=== PATIENT | female | born 1960 | race Hispanic/Latino ===

== ENCOUNTER 2018-11-10 15:27 | Emergency (ER) | payer SELFPAY ==
--- NOTE | 2018-11-10 15:30 | NUR ---
EKG IN TRIAGE; SOLE ROUGHER SAW PT IN TRIAGE
[2018-11-10] MEDS ORDERED: SODIUM CHLORIDE 0.9% 1000ML 1,000 ML IV STA (15:44)
[2018-11-10] MEDS ORDERED: MORPHINE SULFATE INJ 4 MG/ML INJ 1ML IV NR (15:44)
[2018-11-10] MEDS ORDERED: ONDANSETRON HCL INJ 2MG/ML 2ML 2 MG/ML VIAL IV STA (15:44)
[2018-11-10 16:14] LABS: BASOPHILS # (AUTO) 0.1 (0.0-0.1); BASOPHILS % 0.5 % (0.0-1.0); EOSINOPHILS # (AUTO) 0.2 (0.0-0.4); EOSINOPHILS % 1.7 % (0.0-6.0); HEMATOCRIT 40.5 % (34.2-44.1); HEMOGLOBIN 13.5 g/dL (12.0-16.0); LYMPHOCYTES % 30.9 % (18.0-39.1); MEAN CORPUSCULAR HEMOGLOBIN 29.8 pg (28-32); MEAN CORPUSCULAR HGB CONC 33.3 g/dL (31-35); MEAN CORPUSCULAR VOLUME 89.4 fL (81-99); MONOCYTES # (AUTO) 0.5 (0.2-0.8); NEUTROPHILS % 61.6 % (38.7-80.0); PLATELET COUNT 200 x10e3/uL (140-360); RED BLOOD COUNT 4.53 x10e6/uL (3.6-5.1); RED CELL DISTRIBUTION WIDTH 12.5 % (11.7-14.4)
[2018-11-10 16:23] LABS: INR 0.94; PROTHROMBIN TIME 13.4 seconds (11.9-14.5)
[2018-11-10 16:24] LABS: PARTIAL THROMBOPLASTIN TIME 33.6 seconds (23.8-35.5)
[2018-11-10 16:31] LABS: ALANINE AMINOTRANSFERASE 27 IU/L (0-55); ALBUMIN 3.9 g/dL (3.5-5.0); ALBUMIN/GLOBULIN RATIO 1.4 (0.8-2.0); ALKALINE PHOSPHATASE 69 IU/L (40-150); AMYLASE 41 U/L (25-125); ANION GAP 16.7 mmol/L (8-16); BLOOD UREA NITROGEN 10 mg/dL (7-26); BUN/CREATININE RATIO 14 (6-25); CALCIUM 9.4 mg/dL (8.4-10.2); CARBON DIOXIDE 20 mmol/L (22-29); CHLORIDE 105 mmol/L (98-107); CREATINE KINASE 94 IU/L (29-168); CREATININE, SERUM 0.73 mg/dL (0.57-1.11); EST GLOMERULAR FILTRATION RATE > 60 ML/MIN (60-); GLUCOSE 186 mg/dL (74-118); LIPASE 47 U/L (8-78); POTASSIUM 3.7 mmol/L (3.5-5.1); SODIUM 138 mmol/L (136-145)
[2018-11-10 17:18] LABS: BILIRUBIN,URINE NEGATIVE (NEGATIVE); CLARITY,URINE CLEAR (CLEAR); COLOR,URINE YELLOW (YELLOW); KETONES,URINE NEGATIVE (NEGATIVE); LEUKOCYTE ESTERASE ,URINE NEGATIVE (NEGATIVE); NITRITE,URINE NEGATIVE (NEGATIVE); PROTEIN,URINE DIPSTICK NEGATIVE (NEGATIVE); URINE UROBILINOGEN 0.2 mg/dL (0.2 - 1)
[2018-11-10 17:32] LABS: EPITHELIAL CELLS,URINE RARE /LPF; RBC,URINE 0-5 /HPF (0-5)
[2018-11-10] MEDS ORDERED: ONDANSETRON HCL INJ 2MG/ML 2ML 2 MG/ML VIAL IV NR (18:14)
[2018-11-10] MEDS ORDERED: MORPHINE SULFATE INJ 4 MG/ML INJ 1ML IV PRN (18:15)
[2018-11-10] MEDS ORDERED: ONDANSETRON HCL INJ 2MG/ML 2ML 2 MG/ML VIAL ONE (18:21)
--- NOTE | 2018-11-10 18:47 | Diagnostic Imaging Report ---
EXAM: XR CHEST 2 VIEWS DATE: 11/10/2018 3:44 PM INDICATION: Pain COMPARISON: None FINDINGS: Lines and Tubes: None Heart and Mediastinum: No acute cardiomediastinal findings. Lungs and Pleura: No significant pleural effusion, pneumothorax, or focal consolidation. Bones and Soft Tissues: No acute findings. IMPRESSION: 1. No acute cardiopulmonary findings. Signed by: Dr. Angelito Russo MD on 11/10/2018 6:44 PM
--- NOTE | 2018-11-10 18:49 | Diagnostic Imaging Report ---
EXAM: CT Abdomen and Pelvis WITH contrast INDICATION: Pain COMPARISON: None. TECHNIQUE: Abdomen and Pelvis was scanned utilizing a multidetector helical scanner after administration of IV contrast. Coronal and sagittal reformations were obtained. IV CONTRAST: 100 mL Isovue-370 COMPLICATIONS: None RADIATION DOSE: Total DLP:803 mGy*cm Estimated effective dose: (DLP x 0.015 x size factor) mSv CTDIvol has been reviewed. It is below the limits set by the Radiation Protocol Committee (RPC). Appropriate CT dose reduction techniques were utilized. FINDINGS: Abdomen: Lung Bases: Mild emphysematous change. Solid Organs: Hepatic steatosis. Liver, adrenals, kidneys, spleen, and pancreas otherwise unremarkable. Upper GI Tract: Decompressed stomach limits adequate evaluation. No small bowel obstructive changes. Vascularity: Vascular calcifications with no aneurysm. Lymph Nodes: No suspicious adenopathy. Other: None. Pelvis: Bladder: Unremarkable. Other: Uterus absent. Colon: No acute colonic findings. Bones: Moderate L5-S1 degenerative disc changes. IMPRESSION: 1. No definite acute findings. See above for full details. Signed by: Dr. Angelito Russo MD on 11/10/2018 6:46 PM
--- NOTE | 2018-11-10 19:13 | NUR ---
Walking rounds with MYLES Santo.
[2018-11-10] MEDS ORDERED: SODIUM CHLORIDE 0.9% 50ML 50 ML ONE (19:54)
[2018-11-10] MEDS ORDERED: IOPAMIDOL 370 MG/ML 200 ML INFUS..BTL INJ ONE (19:54)
== END 2018-11-10 19:51 | disposition home or self-care (01) ==
LOC: ER 15:27
DX: R07.89 Other chest pain (principal); R10.13 Epigastric pain
CPT/HCPCS: 36415; 71046; 74177; 80053; 81001; 82150; 82550; 82553; 83690; 84484; 85025; 85610; 85730; 93005; 99283; J2270; J2405; J7030; Q9967

== ENCOUNTER 2018-11-20 02:54 | Observation (INO) | payer SELFPAY ==
[2018-11-20] VITALS (10 sets, daily range): BP systolic 108–134; BP diastolic 56–86
[~2018-11-20] VITALS: Ht 160 cm; Wt 82.6 kg
--- OUTSIDE RECORDS SUMMARY | 2018-11-20 02:57 | XMS REPORT ---
[facility] Address Unknown Phone Unavailable Care Team Providers Care Pulp And Paper Tester Name Role Phone Dale SNOW Unavailable Unavailable Problems This patient has no known problems. Allergies, Adverse Reactions, Alerts This patient has no known allergies or adverse reactions. Medications This patient has no known medications. Results Test Description Test Time Test Comments Text Results Atomic Results Result Comments CHEST 2 VIEWS 2018-11-10 18:44:00 [place] [address] Patient Name: SIXTO SURESH MR #: [id number] : 1960 Age/Sex: 58/F Req #: [id number] Adm Physician: Ordered by: FAY LI NP Report #: [id number] Location: ER Room/Bed: Procedure: [id number] DX/CHEST 2 VIEWS Exam Date: Exam Time: REPORT STATUS: Signed EXAM: XR CHEST 2 VIEWS DATE: 11/10/2018 3:44 PM INDICATION: Pain COMPARISON: None FINDINGS: Lines and Tubes: None Heart and Mediastinum: No acute cardiomediastinal findings. Lungs and Pleura: No significant pleural effusion, pneumothorax, or focal consolidation. Bones and Soft Tissues: No acute findings. IMPRESSION: 1. No acute cardiopulmonary findings. Signed by: Dr. Angelito Russo MD on 11/10/2018 6:44 PM Dictated By: AGNELITO RUSSO MD 43 Transcribed By: GUERDA on 11/10/181843 COPY TO: FAY LI NP CT ABDOMEN/PELVIS W 2018-11-10 18:44:00 [place] [address] Patient Name: SIXTO SURESH MR #: [id number] : 1960 Age/Sex: 58/F Req #: [id number] Adm Physician: Ordered by: FAY LI NP Report #: [id number] Location: ER Room/Bed: Procedure: [id number] CT/CT ABDOMEN/PELVIS W Exam Date: Exam Time: REPORT STATUS: Signed EXAM: CT Abdomen and Pelvis WITH contrast INDICATION: Pain COMPARISON: None. TECHNIQUE: Abdomen and Pelvis was scanned utilizing a multidetector helical scanner after administration of IV contrast. Coronal and sagittal reformations were obtained. IV CONTRAST: 100 mL Isovue- 370 COMPLICATIONS: None RADIATION DOSE: Total DLP:803 mGy*cm Estimated effective dose: (DLP x 0.015 x size factor) mSv CTDIvol has been reviewed. It is below the limits set by the Radiation Protocol Committee (RPC). Appropriate CT dose reduction techniques were utilized. FINDINGS: Abdomen: Lung Bases: Mild emphysematous change. Solid Organs: Hepatic steatosis. Liver, adrenals, kidneys, spleen, and pancreas otherwise unremarkable. Upper GI Tract: Decompressed stomach limits adequate evaluation. No small bowel obstructive changes. Vascularity: Vascular calcifications with no aneurysm. Lymph Nodes: No suspicious adenopathy. Other: None. Pelvis: Bladder: Unremarkable. Other: Uterus absent. Colon: No acute colonic findings. Bones: Moderate L5-S1 degenerative disc changes. IMPRESSION: 1. No definite acute findings. See above for full details. Signed by: Dr. Angelito Russo MD on 11/10/2018 6:46 PM Dictated By: ANGELITO RUSSO MD 45 Transcribed By: GUERDA on 11/10/181845 COPY TO: FAY LI NP
[2018-11-20] MEDS ORDERED: ENALAPRILAT IV INJ 1.25 MG/ML VIAL IV STA (03:06)
[2018-11-20] MEDS ORDERED: SODIUM CHLORIDE 0.9% 1000ML 1,000 ML IV STA (03:06)
[2018-11-20] MEDS ORDERED: NITROGLYCERIN 2% OINT 1 GM PKT TOP ONE (03:15)
[2018-11-20] MEDS ORDERED: ACETAMINOPHEN 325 MG TAB PO ONE (03:15)
[2018-11-20] MEDS ORDERED: ONDANSETRON HCL INJ 2MG/ML 2ML 2 MG/ML VIAL IV PRN ×4 (03:15→17:15)
[2018-11-20] MEDS ORDERED: FAMOTIDINE 20 MG/2 ML VIAL IV ONE (03:15)
[2018-11-20] MEDS ORDERED: CLONIDINE HCL 0.1 MG TAB PO ONE (03:15)
[2018-11-20 03:30] LABS: BASOPHILS # (AUTO) 0.1 (0.0-0.1); BASOPHILS % 0.6 % (0.0-1.0); EOSINOPHILS # (AUTO) 0.3 (0.0-0.4); EOSINOPHILS % 2.7 % (0.0-6.0); HEMATOCRIT 38.4 % (34.2-44.1); LYMPHOCYTES # (AUTO) 3.9 (1.0-3.2); LYMPHOCYTES % 36.1 % (18.0-39.1); MEAN CORPUSCULAR HEMOGLOBIN 29.6 pg (28-32); MEAN CORPUSCULAR HGB CONC 33.9 g/dL (31-35); MEAN CORPUSCULAR VOLUME 87.5 fL (81-99); MONOCYTES # (AUTO) 0.7 (0.2-0.8); MONOCYTES % 6.5 % (4.4-11.3); NEUTROPHILS # (AUTO) 5.8 (2.1-6.9); NEUTROPHILS % 53.5 % (38.7-80.0); PLATELET COUNT 210 x10e3/uL (140-360); RED BLOOD COUNT 4.39 x10e6/uL (3.6-5.1); RED CELL DISTRIBUTION WIDTH 12.6 % (11.7-14.4)
[2018-11-20] MEDS ORDERED: ASPIRIN 81 MG CHEW TAB PO ONE (03:30)
[2018-11-20 03:36] LABS: BILIRUBIN,URINE NEGATIVE (NEGATIVE); CLARITY,URINE CLEAR (CLEAR); COLOR,URINE YELLOW (YELLOW); KETONES,URINE NEGATIVE (NEGATIVE); LEUKOCYTE ESTERASE ,URINE NEGATIVE (NEGATIVE); NITRITE,URINE NEGATIVE (NEGATIVE); PROTEIN,URINE DIPSTICK NEGATIVE (NEGATIVE); URINE UROBILINOGEN 0.2 mg/dL (0.2 - 1)
[2018-11-20 03:42] LABS: ALANINE AMINOTRANSFERASE 23 IU/L (0-55); ALBUMIN 3.5 g/dL (3.5-5.0); ALBUMIN/GLOBULIN RATIO 1.1 (0.8-2.0); ALKALINE PHOSPHATASE 67 IU/L (40-150); ANION GAP 16.1 mmol/L (8-16); BLOOD UREA NITROGEN 11 mg/dL (7-26); BUN/CREATININE RATIO 15 (6-25); CALCIUM 9.4 mg/dL (8.4-10.2); CARBON DIOXIDE 20 mmol/L (22-29); CHLORIDE 103 mmol/L (98-107); CREATINE KINASE 53 IU/L (29-168); CREATININE, SERUM 0.72 mg/dL (0.57-1.11); EST GLOMERULAR FILTRATION RATE > 60 ML/MIN (60-); GLUCOSE 200 mg/dL (74-118); POTASSIUM 4.1 mmol/L (3.5-5.1); SODIUM 135 mmol/L (136-145)
[2018-11-20 04:03] LABS: BACTERIA,URINE FEW /HPF; EPITHELIAL CELLS,URINE RARE /LPF; WBC,URINE (MAN) 0-5 /HPF (0-5)
--- NOTE | 2018-11-20 04:03 | Diagnostic Imaging Report ---
EXAM: XR CHEST 1 VIEW DATE: 11/20/2018 3:06 AM INDICATION: Chest pain COMPARISON: 11/10/2018, no report available FINDINGS: Lines and Tubes: None Heart and Mediastinum: Heart upper limits of normal. Lungs and Pleura: Elevation right hemidiaphragm. Minimal basilar opacities. Bones and Soft Tissues: No acute findings. IMPRESSION: 1. Probable basilar atelectasis. Signed by: Dr. Angelito Russo MD on 11/20/2018 4:00 AM
[2018-11-20] MEDS ORDERED: LACTULOSE SYRUP 20 GM/30 ML UDC PO PRN (04:30)
[2018-11-20] MEDS ORDERED: ENALAPRILAT IV INJ 1.25 MG/ML VIAL IV PRN (04:30)
[2018-11-20] MEDS ORDERED: DEXTROSE 50% SYRINGE 50 ML IV PRN (04:30)
[2018-11-20] MEDS ORDERED: ZOLPIDEM TARTRATE 5 MG TAB PO PRN (04:30)
[2018-11-20] MEDS ORDERED: SODIUM CHLORIDE FLUSH 10 ML SYR INJ PRN (04:30)
[2018-11-20] MEDS ORDERED: ACETAMINOPHEN 325 MG TAB PO PRN (04:30)
[2018-11-20] MEDS ORDERED: DIPHENHYDRAMINE HCL INJ 50 MG/ML VIAL IV PRN (04:30)
[2018-11-20] MEDS ORDERED: HYDROCODONE/APAP 7.5MG-325MG 1 EA TAB PO PRN (04:30)
[2018-11-20] MEDS ORDERED: KETOROLAC TROMETHAMINE 30 MG/ML VIAL ONE (05:49)
[2018-11-20] MEDS: NITROGLYCERIN 2% OINT 1 GM PKT TOP SCH ×2 (06:16→12:26)
[2018-11-20] MEDS: METOPROLOL TARTRATE 25 MG TAB PO SCH ×2 (06:18→18:26)
[2018-11-20] MEDS ORDERED: KETOROLAC TROMETHAMINE 30 MG/ML VIAL IV PRN (06:30)
--- NOTE | 2018-11-20 06:55 | NUR ---
RECEIVED REPORT FROM OFF GOING NURSE. PATIENT IN ROOM IN BED. FAMILY AT BEDSIDE. PATIENT CONNECTED TO BEDSIDE MONITOR. PATIENT NPO PENDING POSSIBLE HEART CATH. NO S/S OF ACUTE DISTRESS. PATIENT AAO X 4 AND IS COMMUNICATING WITH FAMILY AND STAFF IN [place]. REPORTS STILL HAS DISCOMFORT IN CHEST AND IN FEET. PATIENT IS AWARE OF PROBABLE PROCEDURE AND WAS MADE AWARE THAT AFTER MD SEES HER THE CONSENT WILL BE FILLED OUT FOR REVIEW THEN SIGNATURE. HOME MEDS REVIEWED AND UPDATED IN CHART. BED DOWN, CALL LIGHT IN REACH, WILL CONTINUE TO MONITOR.
[2018-11-20] MEDS ORDERED: GLIPIZIDE5 MG PEG (07:28)
[2018-11-20] MEDS ORDERED: PRAVASTATIN SOD40 MG PO (07:28)
[2018-11-20] MEDS ORDERED: LOSARTAN POTASS25 MG PO (07:28)
[2018-11-20] MEDS: INSULIN REGULAR, HUMAN 100 UNIT/1 ML 3ML VIAL SQ SCH ×4 (07:51→21:00)
[2018-11-20] MEDS: FAMOTIDINE 20 MG TAB PO SCH ×2 (08:44→21:34)
[2018-11-20] MEDS: ASPIRIN 325 MG TAB EC PO SCH (08:44)
[2018-11-20] MEDS: LISINOPRIL 10 MG TAB PO SCH (08:44)
--- NOTE | 2018-11-20 08:45 | NUR ---
PAGED DR. JAYME CARLOS, PATIENT C/O PAIN. HAS PO PRN PAIN MEDS BUT IS NPO.
[2018-11-20] MEDS ORDERED: MORPHINE SULFATE INJ 4 MG/ML INJ 1ML IV PRN (09:15)
[2018-11-20 10:54] LABS: CHOL/HDL RATIO 5.4 (3.0-3.6)
[2018-11-20 13:06] LABS: CREATINE KINASE MB 3.3 ng/mL (0-5.0)
[2018-11-20] MEDS ORDERED: CLOPIDOGREL BISULFATE 75 MG TAB PO NR (14:00)
--- NOTE | 2018-11-20 14:25 | NUR ---
CONSENT FOR HEART CATH SIGNED, INTERNAL CONSULTANT STAFF IN ED TO COAL PULVERIZER OPERATOR PATIENT AND TAKE TO INTERNAL CONSULTANT.
[2018-11-20] MEDS: SODIUM CHLORIDE 0.9% 1000ML 1,000 ML IV SCH ×2 (14:29→21:35)
[2018-11-20] MEDS ORDERED: MIDAZOLAM HCL 2 MG/2 ML VIAL ONE (14:58)
[2018-11-20] MEDS ORDERED: FENTANYL CITRATE/PF 100MCG/2 ML INJ ONE (14:58)
[2018-11-20] MEDS ORDERED: LIDOCAINE HCL 1% LOCAL INJ 20 ML VIAL ONE (14:59)
[2018-11-20] MEDS ORDERED: IOPAMIDOL 370 MG/ML 200 ML INFUS..BTL INJ ONE ×2 (14:59→15:25)
[2018-11-20] MEDS ORDERED: HEPARIN SOD/SOD CHLORIDE 2,000 ML ONE (14:59)
[2018-11-20] MEDS ORDERED: BIVALRIUDIN 250 MG/VIAL VIAL IV ONE ×2 (15:18→15:21)
[2018-11-20] MEDS ORDERED: SODIUM CHLORIDE 0.9% 100 ML 0 ML ONE (15:18)
[2018-11-20] MEDS ORDERED: SODIUM CHLORIDE 0.9% 50ML 50 ML ONE (15:21)
--- NOTE | 2018-11-20 15:50 | NUR ---
Rec'd to wastewater analyst lab analyst recovery. VSS, denies pain, abdelrahman. pedal pulses 1+, sheath to right groin no complications. Family @ BS.
--- NOTE | 2018-11-20 16:28 | Consultation ---
DATE OF CONSULTATION: November 20, 2018 CARDIOLOGY CONSULTATION REASON FOR CONSULTATION: Chest pain. HISTORY OF PRESENT ILLNESS: This is a 58-year-old female with history of hypertension, hyperlipidemia, diabetes, smoker. Patient presents to [facility] ER with complaints of chest pains and shortness of breath, was noted to be hypertensive. However, complaining of chest pain. Cardiology was consulted. Patient seen in the ER with family at bedside. Reports has been having off-and-on chest pain for the past month or so. However, the past week she is beginning to have progressively more shortness of breath, reports chest pain is becoming more severe and more frequent in nature, reports chest pain has retrosternal pressure and radiates to the left arm with shortness of breath, dizziness, lightheadedness and with some nausea. Also reports has been having intermittent dizziness spells with episodes. Currently during interview patient is having chest pain. EKG noted with inverted T waves in the inferior lateral leads. Initial troponin negative at 0.04, next one has increased to 0.2. Patient continues to have chest pain and shortness of breath. Patient was loaded with Plavix. Options were presented to patient, and patient is requesting that we move forward with a left heart catheterization. Risks and benefits discussed with patient and family members at bedside. PAST MEDICAL HISTORY 1. Hypertension. 2. Hyperlipidemia. 3. Diabetes. 4. Smoker. PAST SURGICAL HISTORY 1. Hysterectomy. 2. Appendectomy. FAMILY HISTORY: Mother at 84, apparently with history of diabetes and hyperlipidemia. Father over 40 years ago, unknown issues. SOCIAL HISTORY: She is a . She is housekeeping. She smokes about a half a pack per day, denies any alcohol use. HOME MEDICATIONS: Include 1. Pravastatin 40 mg once a day. 2. Losartan 25 mg once a day. 3. Glimepiride 2.5 mg twice a day. ALLERGIES: NO KNOWN ALLERGIES. REVIEW OF SYSTEMS GENERAL: Denies any weight changes. Positive for fatigue, weakness. Denies any fevers or chills. SKIN-THAKUR: Denies any rashes, sores. HEENT: Denies any vision changes, double vision, blurred vision, any epistaxis. Positive for sore throat. CARDIAC: Positive for chest pain, shortness of breath, intermittent lower extremity edema. RESPIRATORY: Positive for shortness of breath. Positive for cough, nonproductive. Denies any hemoptysis. GI: Good appetite. Positive for nausea, no vomiting. Denies any diarrhea, constipation, melena, hematochezia. URINARY: Denies any frequency, urgency, dysuria, hematuria. VASCULAR: Positive for the lower extremity edema. Denies any claudication. MUSCULOSKELETAL: Denies any muscle weakness. Positive for joint stiffness and aches. NEUROLOGIC: Denies any numbness, tingling, tremors, weakness, paralysis, blackouts, seizures. HEMATOLOGY: Denies any anemia, easy bruising. ENDOCRINE: Denies any heat or cold intolerance, any polyuria, polydipsia, polyphagia. PHYSICAL EXAMINATION VITAL SIGNS: Height 63 inches, weight 182 pounds, BMI 32. Vital signs currently temperature 98.4, pulse 62, respiratory rate 18, blood pressure 107/64, pulse ox 97% on 2 liters nasal cannula. GENERAL: Appears a reliable informant, in mild distress currently, also emotional. SKIN-THAKUR: No rashes or bruises noted. HEENT: Normocephalic. Pupils equal and reactive. Extraocular motor intact. Trachea midline. A right carotid bruit. Oral mucosa pink. No JVD noted. HEART: Regular rate and rhythm. A soft systolic murmur heard in the right upper sternal border. RESPIRATORY: Bilateral breath sounds diminished throughout. Crackles at the bases. ABDOMEN: Soft, nontender, nondistended. No organomegaly noted. MUSCULOSKELETAL: Good muscle strength throughout. VASCULAR: +2 bilateral radial pulses, +1 DP/PT pulses bilaterally. LABS: Sodium 135, potassium 4.1, chloride 103, bicarb 20, BUN 11, creatinine 0.7, glucose 200. Initial troponin 0.04, next 0.2. Triglyceride 392, total cholesterol 157, LDL 50, HDL 29. ELECTROCARDIOGRAM: Normal sinus rhythm with inverted T waves in the inferior lateral leads. ASSESSMENT 1. Chest pain with unstable angina characteristics. 2. Hypertension. 3. Hyperlipidemia. 4. Diabetes. 5. Smoker. 6. Upper respiratory illness. PLAN-THAKUR 1. The patient presents with chest pain, shortness of breath progressive in nature, with increasing frequency and severity. Patient currently complaining of chest pain during the interview process. Options were given. Patient wants to have a definitive exam with a left heart catheterization. Risks and benefits and alternatives were discussed at length with patient and family member at bedside. Patient wishes for a heart catheterization. Will go ahead and load patient with Plavix, n.p.o., also will start IV fluids. 2. Continue the patient on aspirin, statin and beta tracy therapy. 3. Echo has been done and will be reviewed by cardiology attending. 4. Also a right carotid bruit noted. A carotid Doppler has been ordered to evaluate anatomy. 5. Further recommendations after heart cath has been done. Thank you very much for this consult. We will adjust cardiac therapy as clinical course dictates. Dictated by: Cayetano Cornell NP Seen and examined ACS and rising Troponin ( NSTEMI ) ===> Trolley Car Mechanic Job#: [id number] EV MTDAlayna
[2018-11-20] MEDS ORDERED: ATROPINE SULFATE 0.1 MG/ML 10ML SYR ONE (16:34)
--- NOTE | 2018-11-20 16:39 | NUR ---
Right femoral artery sheath removed and vascade closure device deployed by Osmel Corona. Gauze and tegaderm placed to site C/D/I, tol. izquierdo.
[2018-11-20] MEDS: GLIPIZIDE 5 MG TAB PEG SCH (17:00)
--- NOTE | 2018-11-20 17:00 | Operative Report ---
DATE OF PROCEDURE: November 20, 2018 TITLE OF PROCEDURE: 1. Percutaneous coronary intervention and stenting of the right coronary artery. 2. Left cardiac catheterization. INDICATIONS: Shc-YM-yahbegxlq myocardial infarction in diabetic, hypertensive patient. TECHNICAL DETAILS: After the usual sterile preparation and draping procedure, intravenous Versed given for sedation, local Xylocaine for anesthesia. A 4-Grenadian sheath established in place. Carmen left 4 and 3DRC catheters to engage the coronary. Pigtail for hemodynamic measurement and left ventriculogram. A decision was made to proceed with a PCI. For that reason, the existing 4-Grenadian sheath exchanged to a 6-Grenadian sheath. Guiding catheter with 3DRC showed damping of the pressure. For that reason, the guiding changed to a 3DRC with side hole. Angiomax given in the usual dosage. Patient already received Plavix in the emergency room. The lesion was crossed and stented using 2.25 x 18 stent up to 22 atmospheres. Final diameter of 2.55 mm. The lesion prior to intervention at 95% with clot, following intervention at 0%. Patient transferred to recovery area in stable condition to have her sheath to be removed later using Vascade. RESULTS: A. Coronary angiogram. 1. Left main free of disease. 2. LAD several plaques at 30%. 3. Circumflex coronary artery few plaques at 30%. 4. Right coronary artery 95% with clot distally. B. Hemodynamic measurements: Aorta pressure 120/70. LV pressure 120/18. C. Left ventriculogram in the right anterior oblique view showed normal-sized ventricle with an ejection fraction of 60%. PCI procedure: Lesion distal RCA 95% with clot, following intervention at 0%. The stent was 2.25 x 18 up to 22 atmospheres. Final diameter of 2.55 mm. Of note, patient does have very high bifurcation of her common femoral artery, and her arteries are very small. For that reason, we did not deploy Angio-Seal or Perclose. IMPRESSION: Non-ST myocardial infarction with critical right coronary artery disease with successful percutaneous coronary intervention and stenting. COMPLICATION: None. BLOOD LOSS: Minimum. Job#: [id number] EV
--- NOTE | 2018-11-20 17:14 | History and Physical ---
A 58-year-old female with a past medical history positive for hypertension and diabetes came here with chest pain and uncontrolled hypertension. Patient was found to have elevated troponins ruling in for a rgw-ZH-pcaubwz elevation myocardial infarction. Patient was taken to the cardiac carpenter/labor by Dr. Rangel. REVIEW OF SYSTEMS GENERAL: The patient is still a little bit lethargic after the cardiac cath. She complains of chest pain, but none right now. RESPIRATORY: No shortness of breath. No cough. GASTROINTESTINAL: No nausea. No vomiting. No diarrhea. PHYSICAL EXAMINATION VITALS: Blood pressure now is 99/59, temperature 98.4, heart rate is a 66 per minute, respiratory rate 18 per minute, oxygen saturation 97%. HEART: Shows regular rhythm. Normal S1 and S2 sounds. LUNGS: Clear bilaterally. ABDOMEN: Soft. The chest x-ray showed some probable basilar atelectasis. On the lab work, we have a BMP with a sodium of 135, potassium 4.1, chloride 103, CO2 20, BUN 11, creatinine 0.72, glucose 200. Calcium 9.4. Total bilirubin 0.28, AST 16, ALT 23, alkaline phosphatase 67. Creatinine kinase 63. CK-MB 1.4. Troponin initially was 0.4 and then it went to 0.42 and then peaked at 0.201. Triglycerides were 392, total cholesterol is 157 LDL cholesterol is 50, HDL cholesterol is low at 29. FINAL IMPRESSION 1. Coronary artery disease: Status post ggo-YG-atzoofp elevation myocardial infarction. 2. Hypertensive emergency. 3. Uncontrolled diabetes mellitus, type 2. 4. Obesity. PLAN OF TREATMENT: The patient just underwent a cardiac catheterization. Final report still pending. Patient received Plavix and aspirin already. She is on Tylenol 650 mg IV q.6 h. as needed. She is on aspirin 385 mg in the morning. She is on enalapril at 1.25 mg IV q.6 h. as needed for hypertension. She is on Pepcid 20 mg p.o. twice a day. She is on [place] 7.5 per 325 mg 1 tablet every 6 hours as needed for severe pain. She is also on Toradol 15 mg IV as needed for pain, which we are going to discontinue. Continue lactulose 20 g twice a day as needed for constipation. Continue lisinopril 10 mg daily. Metoprolol 25 mg twice a day. She is on morphine 2 mg IV push every 4 hours as needed. She is on nitroglycerin patch 1 g q.6 h. Continue Zofran 4 mg IV q.4 h. as needed. Continue monitoring blood sugar a.c. and at night. Continue Zocor 40 mg daily. Continue Ambien 5 mg at night p.r.n. for sleep. She is on glipizide 2.5 mg twice a day and Losartan 25 mg daily. Job#: [id number] UT
--- NOTE | 2018-11-20 17:15 | NUR ---
Transferred to room 110 accompanied by family, report to Bebe Muniz RN.
--- NOTE | 2018-11-20 17:16 | NUR ---
Pt rec'd to 110 in stable condition; pt transferred to hospital bed with assistance, and without incident. R groin is soft to palpation without distension, dressing is c/d/i. Pedal pulses palpable. Pt instructed to lay flat for 4 hours and verbalized understanding.
[2018-11-20] MEDS: HYDROCODONE/APAP 5MG-325MG TAB PO PRN (18:25)
[2018-11-20 20:57] LABS: CREATINE KINASE MB 3.8 ng/mL (0-5.0)
--- NOTE | 2018-11-20 21:00 | NUR ---
RECEIVED REPORT FROM AM RN.WALKING ROUNDS DONE.AMBULATES. VOIDED.TOLERATING THE DIET.PEDAL PULSE NOTED.DRESSING @ R.GROIN IS DRY AND INTACT.FAMILY MEMBER AT BED SIDE.BED LOCKED AND IN LOWEST POSITION.PHONE AND CALL LIGHT WITHIN REACH.INSTRUCTED TO CALL FOR ASSISTANCE NEEDED.KEEP MONITOR THE PT.
[2018-11-20] MEDS: SIMVASTATIN 40 MG TAB PO SCH (21:34)
[2018-11-20] MEDS: ZOLPIDEM TARTRATE 5 MG TAB PO PRN (22:30)
[2018-11-21] VITALS (8 sets, daily range): BP systolic 96–121; BP diastolic 51–67
[2018-11-21] MEDS: HYDROCODONE/APAP 5MG-325MG TAB PO PRN ×3 (00:40→18:37)
[2018-11-21] MEDS: METOPROLOL TARTRATE 25 MG TAB PO SCH ×2 (04:30→17:59)
[2018-11-21 06:19] LABS: BASOPHILS # (AUTO) 0.1 (0.0-0.1); BASOPHILS % 0.5 % (0.0-1.0); EOSINOPHILS # (AUTO) 0.2 (0.0-0.4); EOSINOPHILS % 2.1 % (0.0-6.0); HEMATOCRIT 34.2 % (34.2-44.1); HEMOGLOBIN 11.3 g/dL (12.0-16.0); LYMPHOCYTES # (AUTO) 3.6 (1.0-3.2); LYMPHOCYTES % 35.1 % (18.0-39.1); MEAN CORPUSCULAR VOLUME 90.7 fL (81-99); MONOCYTES # (AUTO) 0.8 (0.2-0.8); MONOCYTES % 7.4 % (4.4-11.3); NEUTROPHILS # (AUTO) 5.6 (2.1-6.9); NEUTROPHILS % 54.6 % (38.7-80.0); PLATELET COUNT 183 x10e3/uL (140-360); RED BLOOD COUNT 3.77 x10e6/uL (3.6-5.1); RED CELL DISTRIBUTION WIDTH 12.7 % (11.7-14.4)
[2018-11-21 06:41] LABS: ALANINE AMINOTRANSFERASE 19 IU/L (0-55); ALBUMIN 2.8 g/dL (3.5-5.0); ALKALINE PHOSPHATASE 52 IU/L (40-150); ANION GAP 12.9 mmol/L (8-16); CALCIUM 8.5 mg/dL (8.4-10.2); CARBON DIOXIDE 22 mmol/L (22-29); CHLORIDE 107 mmol/L (98-107); CHOL/HDL RATIO 5.7 (3.0-3.6); CHOLESTEROL 132 MD/DL (0-199); CREATININE, SERUM 0.64 mg/dL (0.57-1.11); EST GLOMERULAR FILTRATION RATE > 60 ML/MIN (60-); GLUCOSE 98 mg/dL (74-118); HDL CHOLESTEROL 23 MG/DL (40-60); LDL CHOLESTEROL 41 MG/DL (60-130); POTASSIUM 3.9 mmol/L (3.5-5.1); SODIUM 138 mmol/L (136-145); TRIGLYCERIDES 340 MG/DL (0-149)
--- NOTE | 2018-11-21 06:50 | NUR ---
REPORT GIVEN TO THE ONCOMING RN.WALKING ROUNDS DONE.STABLE CONDITION.
[2018-11-21 07:13] LABS: BLOOD UREA NITROGEN 9 mg/dL (7-26); BUN/CREATININE RATIO 14 (6-25)
[2018-11-21] MEDS: INSULIN REGULAR, HUMAN 100 UNIT/1 ML 3ML VIAL SQ SCH ×4 (07:30→20:27)
--- NOTE | 2018-11-21 07:48 | NUR ---
CALL PLACED TO DR. DELACRUZ'S OFFICE AT THIS TIME TO REPORT SEVERE PAIN TO RIGHT ARM, NECK, AND CHEST. CALL BACK REC'D, ORDERS TO INCREASE DOSE OF PAIN MEDICATION.
[2018-11-21] MEDS: GLIPIZIDE 5 MG TAB PEG SCH ×2 (08:41→17:58)
[2018-11-21] MEDS: LISINOPRIL 10 MG TAB PO SCH (08:41)
[2018-11-21] MEDS: FAMOTIDINE 20 MG TAB PO SCH ×2 (08:41→20:44)
[2018-11-21] MEDS: ASPIRIN 325 MG TAB EC PO SCH (08:41)
--- NOTE | 2018-11-21 08:57 | NUR ---
CALL PLACED TO DR. BELLAMY TO INFORM OF CHEST PAIN 01/20 AFTER ADMINISTRATION OF 4MG MORPHINE IV. ORDERS REC'D FOR ONE TIME DOSE PLAVIX. DR. BELLAMY MADE AWARE OF 12 LEAD EKG RESULTS AND TROPONIN.
[2018-11-21] MEDS ORDERED: LOSARTAN POTASSIUM 25 MG TAB PO SCH (09:00)
[2018-11-21] MEDS ORDERED: CLOPIDOGREL BISULFATE 75 MG TAB PO SCH (09:00)
[2018-11-21] MEDS ORDERED: CLOPIDOGREL BISULFATE 75 MG TAB PO NR (09:00)
[2018-11-21] MEDS ORDERED: MORPHINE SULFATE INJ 4 MG/ML INJ 1ML IV PRN (09:15)
[2018-11-21] MEDS ORDERED: PRASUGREL 10 MG TAB PO NR (09:30)
--- NOTE | 2018-11-21 12:58 | NUR ---
ROUNDS WITH DR. BELLAMY AND DR. DELACRUZ. ORDERS RECEIVED FROM DR. BELLAMY; PLAN OF CARE DISCUSSED WITH PATIENT AND FAMILY. PER DR. BELLAMY, PATIENT WILL BE DISCHARGED TOMORROW.
[2018-11-21] MEDS: LORAZEPAM 1 MG TAB PO PRN (13:50)
[2018-11-21] MEDS: SODIUM CHLORIDE 0.9% 1000ML 1,000 ML IV SCH (14:03)
--- NOTE | 2018-11-21 19:10 | NUR ---
RECEIVED THE PT FROM MORNING RN.WALKING ROUNDS DONE.STABLE CONDITION.
[2018-11-21] MEDS: ALBUTEROL SULF 0.083% NEB SOLN 3 ML NEB NEB PRN (19:15)
--- NOTE | 2018-11-21 19:36 | Diagnostic Imaging Report ---
EXAM: XR CHEST 1 VIEW DATE: 11/21/2018 6:13 PM INDICATION: pain COMPARISON: None FINDINGS: Lines and Tubes: None Heart and Mediastinum: No acute cardiomediastinal findings. Lungs and Pleura: Minimal opacities in the lung bases statistically represent atelectasis, however, infectious process could have a similar appearance. Bones and Soft Tissues: No acute findings. IMPRESSION: 1. Minimal opacities in the lung bases statistically represent atelectasis, however, infectious process could have a similar appearance. Signed by: Dr. Angelito Russo MD on 11/21/2018 7:33 PM
[2018-11-21] MEDS: SIMVASTATIN 40 MG TAB PO SCH (20:44)
[2018-11-21] MEDS: ZOLPIDEM TARTRATE 5 MG TAB PO PRN (21:07)
--- NOTE | 2018-11-21 22:10 | NUR ---
ASSESSMENT DONE.NO RESP.DISTRESS. R.ARM AND CHEST PAIN VOICED3/10.FAMILY MEMBERS AT BED SIDE.AMBULATES VOIDED BED LOCKED AND IN LOWEST POSITION.PHONE AND CALL LIGHT WITHIN REACH.INSTRUCTED TO CALL FOR ASSISTANCE NEEDED.KEEP MONITORING THE PT.
[2018-11-22 00:05] VITALS: BP 108/58
[2018-11-22] MEDS: HYDROCODONE/APAP 5MG-325MG TAB PO PRN ×2 (00:53→07:05)
[2018-11-22] MEDS: LORAZEPAM 1 MG TAB PO PRN (01:11)
--- NOTE | 2018-11-22 03:13 | Discharge Summary ---
HISTORY OF PRESENT ILLNESS: Patient is a 58-year-old female who had a past medical history positive mainly for hypertension, diabetes, and hypercholesterolemia. The patient came to the hospital complaining of chest pain. She was found to have non-ST segment elevation MA. She has had a cardiac cath and a stent was placed in the right coronary artery. Patient is still having pain but it is more in the shoulder and neck today. Patient is most likely going to go home tomorrow if okay with Dr. Rangel, data coordinator. PHYSICAL EXAM VITAL SIGNS: Blood pressure 113/57, temperature 97.7, heart rate 71 per minute, respiratory rate 18 per minute, and oxygen saturation 98%. HEART: Regular rhythm. Normal S1 and S2 sounds. LUNGS: Clear bilaterally. ABDOMEN: Soft. EXTREMITIES: No evidence of cyanosis, edema, or trauma. She had 2+ bilateral pedal pulses. LABORATORY DATA: On the BMP, sodium 138, potassium 3.9, chloride 107, CO2 22, BUN 9, creatinine 0.64, and glucose 98. On the CBC, white blood count 10.1, hemoglobin 11.3, hematocrit 34.2, and platelet count 183,000. AST 19, ALT 19, total bilirubin 0.3, and alkaline phosphatase 52. FINAL IMPRESSION 1. Coronary artery disease, status post non-ST segment elevation myocardial infarction. 2. Hypertension. 3. Diabetes. 4. Obesity. 5. Hypercholesterolemia. PLAN OF TREATMENT: She is going to be discharged on aspirin 325 mg daily, Pepcid 20 mg twice a day, and continue metoprolol 25 mg twice a day. She is going to be on lisinopril 10 mg daily and glipizide 2.5 mg twice a day. We are going to send her on Lipitor 40 mg daily and she is going to continue Effient daily for a week. FOLLOWUP: She is going to follow up with Dr. Rangel in a week and Dr. Bacilio Merino, her primary care physician. DIET: Diabetic and low-cholesterol diet and low-salt diet. ELMIRA DELACRUZ MD Job#: [id number] MARTHA
[2018-11-22] MEDS: SODIUM CHLORIDE 0.9% 1000ML 1,000 ML IV SCH (04:04)
[2018-11-22] MEDS: METOPROLOL TARTRATE 25 MG TAB PO SCH (05:30)
[2018-11-22 06:10] VITALS: BP 118/58
--- NOTE | 2018-11-22 06:50 | NUR ---
REPORT GIVEN TO THE ONCOMING RN.WALKING ROUNDS DONE.STABLE CONDITION.
[2018-11-22] MEDS: INSULIN REGULAR, HUMAN 100 UNIT/1 ML 3ML VIAL SQ SCH ×2 (07:30→11:30)
[2018-11-22 07:47] VITALS: BP 147/65
[2018-11-22] MEDS: ALBUTEROL SULF 0.083% NEB SOLN 3 ML NEB NEB PRN (08:02)
[2018-11-22 08:45] VITALS: BP 147/65
[2018-11-22] MEDS ORDERED: PRASUGREL 10 MG TAB PO SCH (09:00)
[2018-11-22] MEDS: FAMOTIDINE 20 MG TAB PO SCH (09:04)
[2018-11-22] MEDS: GLIPIZIDE 5 MG TAB PEG SCH (09:04)
[2018-11-22] MEDS: LISINOPRIL 10 MG TAB PO SCH (09:04)
[2018-11-22] MEDS: ASPIRIN 325 MG TAB EC PO SCH (09:04)
[2018-11-22 11:53] VITALS: BP 166/71
[2018-11-22] MEDS ORDERED: EFFIENT10 MG PO (12:31)
[2018-11-22] MEDS ORDERED: LIPITOR20 MG PO (12:34)
[2018-11-22] MEDS ORDERED: METOPROLOL TART25 MG PO (12:35)
[2018-11-22] MEDS ORDERED: ASPIR 8181 MG (12:36)
[2018-11-22] MEDS ORDERED: PLAVIX75 MG PO (12:37)
--- NOTE | 2018-11-22 13:07 | NUR ---
PT MEETS CRITERIA FOR DISCHARGE, DR. BELLAMY AWARE OF BP. DISCHARGE INSTRUCTIONS GIVEN TO THE PATIENT AND HER SON; PT AND SON VERBALIZED UNDERSTANDING. PT VERBALIZED UNDERSTANDING REGARDING IMPORTANCE OF TAKING ANTICOAGULANT FOR NEWLY PLACED STENT. IV REMOVED WITH TIP INTACT. DRESSING APPLIED;
--- NOTE | 2018-11-22 13:09 | NUR ---
ALL PERSONAL BELONGINGS GATHERED AND PACKED. PT ESCORTED TO PERSONAL VEHICLE VIA WHEELCHAIR WITH ALL PERSONAL BELONGINGS.
== END 2018-11-22 13:09 | disposition home or self-care (01) ==
LOC: ER 02:54 → ERHOLD 04:47 → MED/SURG 17:07
PROVIDERS: ADMIT Internal Medicine; ATTEND Internal Medicine
DX: I21.4 Non-ST elevation (NSTEMI) myocardial infarction (principal); E11.65 Type 2 diabetes mellitus with hyperglycemia; R94.31 Abnormal electrocardiogram [ECG] [EKG]; I10 Essential (primary) hypertension; I16.1 Hypertensive emergency; E66.9 Obesity, unspecified; E78.5 Hyperlipidemia, unspecified; F17.210 Nicotine dependence, cigarettes, uncomplicated; J06.9 Acute upper respiratory infection, unspecified; Z68.32 Body mass index [BMI] 32.0-32.9, adult; F41.9 Anxiety disorder, unspecified; E78.00 Pure hypercholesterolemia, unspecified; Z79.84 Long term (current) use of oral hypoglycemic drugs; I25.110 Atherosclerotic heart disease of native coronary artery with unstable angina pectoris
CPT/HCPCS: 36415 ×3; 71045 ×2; 80053 ×2; 80061 ×2; 81001; 82550; 82553; 82948 ×3; 84484; 85025 ×2; 87400; 92928; 93005 ×2; 93306; 93458; 93880; 94640 ×2; 96374; 96375; 99285; C1760; C1766; C1769; C1874; G0378 ×3; J0583; J1885; J2001; J2250; J2270 ×2; J2405 ×2; J7030 ×2; Q9967

== ENCOUNTER 2022-10-30 08:11 | Emergency (ER) | payer OTHER ==
[~2022-10-30] VITALS: Ht 160 cm; Wt 82.6 kg
[~2022-10-30 08:11] MED LIST: ASPIR 8181 MG; EFFIENT10 MG PO; GLIPIZIDE5 MG PEG; LIPITOR20 MG PO; LOSARTAN POTASS25 MG PO; METOPROLOL TART25 MG PO; PLAVIX75 MG PO; PRAVASTATIN SOD40 MG PO
[2022-10-30] MEDS ORDERED: MECLIZINE HCL 12.5 MG TAB PO STA (08:27)
[2022-10-30] MEDS ORDERED: ASPIRIN 81 MG CHEW TAB PO ONE (08:30)
[2022-10-30 08:39] LABS: BASOPHILS # (AUTO) 0.1 (0.0-0.1); BASOPHILS % 0.7 % (0.0-1.0); EOSINOPHILS # (AUTO) 0.3 (0.0-0.4); EOSINOPHILS % 2.4 % (0.0-6.0); HEMATOCRIT 38.2 % (34.2-44.1); HEMOGLOBIN 12.9 g/dL (12.0-16.0); LYMPHOCYTES # (AUTO) 3.4 (1.0-3.2); MEAN CORPUSCULAR HEMOGLOBIN 30.7 pg (28-32); MEAN CORPUSCULAR HGB CONC 33.8 g/dL (31-35); MONOCYTES # (AUTO) 0.7 (0.2-0.8); MONOCYTES % 6.7 % (4.4-11.3); NEUTROPHILS # (AUTO) 6.2 (2.1-6.9); NEUTROPHILS % 57.8 % (38.7-80.0); PLATELET COUNT 165 x10e3/uL (140-360); RED CELL DISTRIBUTION WIDTH 13.7 % (11.7-14.4)
[2022-10-30 08:56] LABS: INR 0.96
[2022-10-30 08:57] LABS: PARTIAL THROMBOPLASTIN TIME 31.7 seconds (23.8-35.5)
[2022-10-30 09:08] LABS: ALBUMIN 3.8 g/dL (3.5-5.0); ALBUMIN/GLOBULIN RATIO 1.2 (0.8-2.0); ANION GAP 17.6 mmol/L (8-16); CALCIUM 9.4 mg/dL (8.4-10.2); CREATININE, SERUM 0.81 mg/dL (0.57-1.11); POTASSIUM 3.6 mmol/L (3.5-5.1)
[2022-10-30 09:10] LABS: CREATINE KINASE 123 IU/L (29-168)
[2022-10-30 10:44] LABS: CLARITY,URINE CLEAR (CLEAR); COLOR,URINE YELLOW (YELLOW); KETONES,URINE NEGATIVE (NEGATIVE); LEUKOCYTE ESTERASE ,URINE NEGATIVE (NEGATIVE); NITRITE,URINE NEGATIVE (NEGATIVE); PROTEIN,URINE DIPSTICK NEGATIVE (NEGATIVE); URINE UROBILINOGEN 0.2 mg/dL (0.2 - 1)
[2022-10-30 10:56] LABS: BACTERIA,URINE MODERATE /HPF; EPITHELIAL CELLS,URINE MODERATE /LPF; RBC,URINE 0-5 /HPF (0-5); WBC,URINE (MAN) 0-5 /HPF (0-5)
[2022-10-30] MEDS ORDERED: MECLIZINE HCL12.5 MG PO (14:13)
== END 2022-10-30 14:51 | disposition home or self-care (01) ==
LOC: ER 08:15
DX: R10.13 Epigastric pain (principal); R42 Dizziness and giddiness; E11.65 Type 2 diabetes mellitus with hyperglycemia; I10 Essential (primary) hypertension; E78.5 Hyperlipidemia, unspecified; Z20.822 Contact with and (suspected) exposure to COVID-19; Z95.5 Presence of coronary angioplasty implant and graft
CPT/HCPCS: 36415; 70450; 71045; 80053; 81001; 82550; 82553; 83880; 84484; 85025; 85610; 85730; 93005; 99284; J8597; U0002